=== PATIENT | male | born 1965 | race Caucasian/White ===

== ENCOUNTER → 2020-01-22 | Outpatient (CLI) | payer BC | END | disposition home or self-care (01) | LOC: US 14:54 | PROVIDERS: ATTEND Nurse Practitioner Family | DX: M79.661 Pain in right lower leg (principal); R60.0 Localized edema; Z86.718 Personal history of other venous thrombosis and embolism ==

== ENCOUNTER 2020-02-10 02:15 | Emergency (ER) | payer BC ==
[~2020-02-10] VITALS: Wt 131.5 kg
== END 2020-02-10 04:24 | disposition home or self-care (01) ==
LOC: ED 02:15
DX: S46.001A Unspecified injury of muscle(s) and tendon(s) of the rotator cuff of right shoulder, initial encounter (principal); M25.511 Pain in right shoulder; E78.00 Pure hypercholesterolemia, unspecified; I10 Essential (primary) hypertension; E11.9 Type 2 diabetes mellitus without complications; X58.XXXA Exposure to other specified factors, initial encounter; Y93.89 Activity, other specified; Y92.89 Other specified places as the place of occurrence of the external cause; Y99.8 Other external cause status

== ENCOUNTER → 2020-02-24 | Outpatient (CLI) | payer BC | END | disposition home or self-care (01) | LOC: MRI 09:31 | PROVIDERS: ATTEND Orthopaedic Surgery | DX: S46.811A Strain of other muscles, fascia and tendons at shoulder and upper arm level, right arm, initial encounter (principal); M75.111 Incomplete rotator cuff tear or rupture of right shoulder, not specified as traumatic; M25.411 Effusion, right shoulder; M75.51 Bursitis of right shoulder; X58.XXXA Exposure to other specified factors, initial encounter; Y93.89 Activity, other specified; Y92.89 Other specified places as the place of occurrence of the external cause; Y99.8 Other external cause status ==

== ENCOUNTER → 2020-03-05 | Outpatient (CLI) | payer BC ==
[~2020-03-05] MED LIST: CENTURY ADULTS1 EACH PO; ECOTRIN325 M1 PO; GLIPIZIDE10 M2 PO; GLUCOPHAGE500 M1 PO; LISINOPRIL-HCT1 EACH PO; NEURONTIN400 MG PO; OMEPRAZOLE20 M2 PO; SIMVASTATIN80 MG PO; TOUJEO SOL300 UNIT/1 SQ; ULTRAM50 MG PO; VERAPAMIL HCL240 MG PO
[2020-03-05 11:42] LABS: BASO # 0.1 10*3/uL (0.0-0.1); BASO % 0.4 % (0.0-1.0); EOS # 0.1 10*3/uL (0.0-0.4); EOS % 1.1 % (1.0-4.0); LYMPH % 16.9 % (27.0-41.0); MEAN CELL VOLUME 80.9 fl (80.0-94.0); MEAN CORPUSCULAR HGB 25.2 pg (27.0-31.0); MEAN CORPUSCULAR HGB CONC 31.2 g/dl (33.0-37.0); MEAN PLATELET VOLUME 8.7 fl (9.6-12.3); MONO # 1.1 10*3/uL (0.1-1.0); MONO % 8.9 % (3.0-9.0); NEUT # 8.6 10*3/uL (2.3-7.9); NEUT % 72.1 % (47.0-73.0); PLATELET COUNT AUTOMATED 487 10*3/uL (130-400); RED BLOOD COUNT 5.19 10*6/uL (4.50-5.90); RED CELL DISTRI WIDTH 15.9 % (0-14.5)
[2020-03-05 11:54] LABS: BUN 23 mg/dl (7-24); CHLORIDE 104 mmol/L (98-107); CREATININE 1.27 mg/dL (0.70-1.30); POTASSIUM 4.5 mmol/L (3.5-5.1); SODIUM 134 mmol/L (136-145)
== END | disposition home or self-care (01) ==
LOC: COVID19 00:55 → LAB 00:55 → COVID19 10:15
PROVIDERS: ATTEND Orthopaedic Surgery
DX: Z01.818 Encounter for other preprocedural examination (principal); M75.111 Incomplete rotator cuff tear or rupture of right shoulder, not specified as traumatic; Z20.828 Contact with and (suspected) exposure to other viral communicable diseases

== ENCOUNTER → 2020-03-12 | Day surgery (SDC) | payer BC ==
[2020-03-05 10:41] VITALS: BP 149/85
[2020-03-10 09:10] VITALS: BP 118/75
[2020-03-12] VITALS (7 sets, daily range): BP systolic 105–166; BP diastolic 49–88
[~2020-03-12] VITALS: Ht 185.4 cm; Wt 139.7 kg
== END | disposition home or self-care (01) ==
LOC: SDC 03-05 11:00
PROVIDERS: ATTEND Orthopaedic Surgery
DX: M75.111 Incomplete rotator cuff tear or rupture of right shoulder, not specified as traumatic (principal); I10 Essential (primary) hypertension; K21.9 Gastro-esophageal reflux disease without esophagitis; E11.9 Type 2 diabetes mellitus without complications; J45.909 Unspecified asthma, uncomplicated; E78.00 Pure hypercholesterolemia, unspecified; F17.210 Nicotine dependence, cigarettes, uncomplicated; Z79.84 Long term (current) use of oral hypoglycemic drugs; Z98.890 Other specified postprocedural states; Z79.899 Other long term (current) drug therapy

== ENCOUNTER → 2020-09-15 | Outpatient (CLI) | payer BC ==
[2020-09-15 12:14] LABS: BODY FLUID WBC 13263 /uL
[2020-09-15 12:19] LABS: BF LYMPHOCYTES 1 %; BF MACROPHAGES 15 %; BF NEUTROPHILS 84 %
== END | disposition home or self-care (01) ==
LOC: ORTHO 09:07
PROVIDERS: ATTEND Orthopaedic Surgery
DX: M17.11 Unilateral primary osteoarthritis, right knee (principal); M76.41 Tibial collateral bursitis [Pellegrini-Stieda], right leg; M25.461 Effusion, right knee; M10.9 Gout, unspecified

== ENCOUNTER 2020-10-03 16:46 | Emergency (ER) | payer BC ==
[~2020-10-03] VITALS: Ht 185.4 cm; Wt 131.5 kg
== END 2020-10-03 18:56 | disposition home or self-care (01) ==
LOC: ED 16:46
DX: G89.29 Other chronic pain (principal); M11.261 Other chondrocalcinosis, right knee; E66.9 Obesity, unspecified; Z98.890 Other specified postprocedural states; Z79.82 Long term (current) use of aspirin; Z79.899 Other long term (current) drug therapy; Z79.4 Long term (current) use of insulin

== ENCOUNTER 2020-10-28 18:33 | Emergency (ER) | payer BC ==
[~2020-10-28] VITALS: Ht 182.8 cm; Wt 136.1 kg
[2020-10-28] MEDS ORDERED: NAPROSYN500 MG PO (19:52)
[2020-10-28] MEDS ORDERED: METHOCARBAMOL750 M1 PO (19:52)
== END 2020-10-28 20:30 | disposition home or self-care (01) ==
LOC: ED 18:33
DX: S16.1XXA Strain of muscle, fascia and tendon at neck level, initial encounter (principal); Z79.82 Long term (current) use of aspirin; Z79.899 Other long term (current) drug therapy; Z79.4 Long term (current) use of insulin; X58.XXXA Exposure to other specified factors, initial encounter; Y93.89 Activity, other specified; Y92.89 Other specified places as the place of occurrence of the external cause; Y99.8 Other external cause status